=== PATIENT | male | born 1970 | race Caucasian/White ===

== ENCOUNTER 2023-03-15 09:38 | Emergency (ER) | payer SELFPAY ==
[2023-03-15] MEDS ORDERED: Dexameth. Sod Phosp. 10 MG/ML (CHEMO USE ONLY) ONE (10:53)
[2023-03-15] MEDS ORDERED: Loratadine 10 MG TAB PO SCH (11:15)
== END 2023-03-15 11:29 | disposition home or self-care (01) ==
LOC: ERS 09:38
DX: B34.9 Viral infection, unspecified (principal)
CPT/HCPCS: 87081; 87430; 99283; J1100

== ENCOUNTER 2023-03-24 12:02 | Inpatient (IN) | payer SELFPAY ==
[2023-03-24 12:53] LABS: Hemoglobin 14.4 g/dL (14.0-18.0); Mean Corpuscular HGB CONC 35.1 g/dL (32.0-36.0); Mean Corpuscular Hemoglobin 29.7 pg (27.0-31.0); Mean Corpuscular Volume 84.5 fl (78.0-98.0); Mean Platelet Volume 11.2 fL (7.4-10.4); RBC Distribution Width 13.6 % (11.5-14.5); Red Blood Cell (RBC) Count 4.85 mill/uL (4.70-6.10); White Blood Cell (WBC) Count 12.6 10x3/uL (4.8-10.8)
[2023-03-24 12:56] LABS: Delete Auto Diff?? YES; Manual Diff?? YES; Platelet Count 74 10x3/uL (130-400)
[2023-03-24 13:16] LABS: ALT (SGPT) 33 U/L (8-55); AST (SGOT) 136 U/L (5-34); Albumin 3.2 g/dL (3.5-5.0); Alkaline Phosphatase 60 U/L (40-110); Anion Gap 16 mmol/L (10-20); BUN (Urea Nitrogen) 39 mg/dL (8.4-25.7); Bilirubin, Total 0.7 mg/dL (0.2-1.2); Calc. Creatinine Clearance 0 mL/min (70-130); Calcium 8.5 mg/dL (7.8-10.44); Carbon Dioxide 23 mmol/L (22-29); Chloride 86 mmol/L (98-107); Estimated GFR 22; Glucose 92 mg/dL (70-105); Lipase 29 U/L (8-78); Potassium 3.1 mmol/L (3.5-5.1); Protein, Total 7.2 g/dL (6.0-8.3); Sodium 122 mmol/L (136-145)
[2023-03-24 13:21] LABS: Band 38 % (5-11); CellaVision Operator ID LAB.MJL; Dohle Bodies SLIGHT; Eosinophils 3 % (0-10); Large Platelets 0.9 % (0-5); Lymphocytes 2 % (21-51); Monocytes 6 % (0-10); Neutrophil 48 % (42-75); Platelet Adequacy Comment Platelets Decreased; RBC Morphology Within Normal Limits; Reactive Lymphocytes 4 % (0-10); Total Cell Count 109; Vacuoles MODERATE
[2023-03-24] MEDS ORDERED: Potassium Chloride 20 MEQ TAB ONE (15:44)
[2023-03-24] MEDS ORDERED: Sodium Chloride 0.9% 1,000 ML IV SCH (15:45)
[2023-03-24] MEDS ORDERED: Guaifenesin DM 100-10/5 ML UDCUP PO PRN (15:51)
[2023-03-24] MEDS ORDERED: Ondansetron PF 4 MG/2 ML Vial IVP PRN (15:51)
[2023-03-24 16:47] LABS: Magnesium 1.9 mg/dL (1.6-2.6)
[2023-03-24 16:58] LABS: HBCM Index 0.06 S/CO (0-0.79); HBSAg Index 0.38 S/CO (0-0.99); HIV (1/2) Antibody/Antigen Non-Reactive (NonReactive); HIV 1/2 INDEX 0.14 S/CO (<1.00); Hep A IgM AB Non-Reactive S/CO (NonReactive); Hep A IgM S/CO 0.38 S/CO (0-0.79); Hep B Surf Ag Non-Reactive S/CO (NonReactive); Hep C IgG Ab Non-Reactive S/CO (NonReactive); Hep C Index 0.06 S/CO (0-0.79); Hepatitis B Core IgM Abs Non-Reactive S/CO (NonReactive)
[2023-03-24 17:00] VITALS: BMI 34.2
[2023-03-24] MEDS: Sodium Chloride 0.9% 1,000 ML IV SCH (17:17)
[2023-03-24] MEDS ORDERED: Potassium Chloride 20 MEQ TAB PO SCH (22:00)
[2023-03-24 23:57] LABS: Campy jejuni + coli by PCR Negative (Negative); STEC Shiga Toxin 1+2 Negative (Negative); Salmonella spp. by PCR Negative (Negative); Shigella spp + EIEC by PCR Negative (Negative)
[2023-03-25 00:33] LABS: BUN (Urea Nitrogen) 41 mg/dL (8.4-25.7); Calc. Creatinine Clearance 59 mL/min (70-130); Calcium 7.6 mg/dL (7.8-10.44); Chloride 95 mmol/L (98-107); Estimated GFR 32; Glucose 79 mg/dL (70-105); Potassium 3.4 mmol/L (3.5-5.1); Sodium 124 mmol/L (136-145)
[2023-03-25 00:54] LABS: Anion Gap 10 mmol/L (10-20); Carbon Dioxide 20 mmol/L (22-29)
[2023-03-25] MEDS: Sodium Chloride 0.9% 1,000 ML IV SCH ×3 (05:30→22:05)
[2023-03-25 07:30] LABS: Hemoglobin 11.6 g/dL (14.0-18.0); Mean Corpuscular HGB CONC 34.8 g/dL (32.0-36.0); Mean Corpuscular Hemoglobin 29.7 pg (27.0-31.0); Mean Corpuscular Volume 85.4 fl (78.0-98.0); Mean Platelet Volume 12.1 fL (7.4-10.4); White Blood Cell (WBC) Count 7.7 10x3/uL (4.8-10.8)
[2023-03-25 07:37] LABS: Delete Auto Diff?? YES; Manual Diff?? YES; Platelet Count 55 10x3/uL (130-400)
[2023-03-25 07:52] LABS: Albumin 2.5 g/dL (3.5-5.0); Anion Gap 11 mmol/L (10-20); BUN (Urea Nitrogen) 38 mg/dL (8.4-25.7); BUN/Creatinine Ratio 17.67; Calc. Creatinine Clearance 64 mL/min (70-130); Calcium 7.5 mg/dL (7.8-10.44); Carbon Dioxide 18 mmol/L (22-29); Chloride 97 mmol/L (98-107); Estimated GFR 36; Glucose 77 mg/dL (70-105); Potassium 3.2 mmol/L (3.5-5.1); Sodium 123 mmol/L (136-145)
[2023-03-25 09:09] LABS: Band 36 % (5-11); Burr Cells SLIGHT = 2-5 cells HPF (0-1); CellaVision Operator ID LAB.GE; Eosinophils 4 % (0-10); Lymphocytes 1 % (21-51); Metamyelocyte 4 % (0-0); Monocytes 2 % (0-10); Neutrophil 53 % (42-75); Platelet Adequacy Comment Platelets Decreased; Polychromasia SLIGHT = 2-3 cells HPF (0-2); Total Cell Count 99
[2023-03-25 19:45] LABS: Bilirubin Negative (Negative); Blood, Urine Negative (Negative); Clarity Clear (Clear); Glucose, Urine (Dipstick) Normal (Negative); Ketone, Urine Negative (Negative); Leukocyte Negative Leu/uL (Negative); Nitrite Negative (Negative); Protein, Urine (Dipstick) 20 mg/dL (Neg-Trace); Specific Gravity, Urine 1.009 (1.002-1.036); Urobilinogen Normal mg/dL (Less than 2)
[2023-03-25] MEDS: Hydrocortisone 1% Cream 30 GM TUBE TOP SCH (20:24)
[2023-03-25] MEDS: Acetaminophen 325 MG TAB PO PRN (20:27)
[2023-03-26] MEDS ORDERED: diphenhydrAMINE 25 MG CAP PO SCH (01:35)
[2023-03-26] MEDS ORDERED: diphenhydrAMINE 25 MG CAP ONE (01:52)
[2023-03-26] MEDS: Acetaminophen 325 MG TAB PO PRN (05:46)
[2023-03-26] MEDS: Sodium Chloride 0.9% 1,000 ML IV SCH ×5 (08:26→21:24)
[2023-03-26] MEDS: Hydrocortisone 1% Cream 30 GM TUBE TOP SCH ×2 (08:27→21:24)
[2023-03-26 10:33] LABS: Anion Gap 11 mmol/L (10-20); BUN (Urea Nitrogen) 29 mg/dL (8.4-25.7); Calc. Creatinine Clearance 98 mL/min (70-130); Calcium 7.4 mg/dL (7.8-10.44); Carbon Dioxide 21 mmol/L (22-29); Chloride 100 mmol/L (98-107); Estimated GFR 60; Glucose 102 mg/dL (70-105); Potassium 3.1 mmol/L (3.5-5.1); Sodium 129 mmol/L (136-145)
[2023-03-26 11:23] LABS: EBV VCA IgM <36.0 U/mL (0.0-35.9)
[2023-03-26 13:31] LABS: Bilirubin, Direct 0.2 mg/dL (0.1-0.3)
[2023-03-26] MEDS ORDERED: Potassium Chloride 20 MEQ TAB PO SCH (14:15)
[2023-03-26 15:51] LABS: Ref Lab Test Ordered ADAMTS13 Activity; Reference Lab Name LABCORP
[2023-03-27 00:12] LABS: Campylobacter by PCR Not Detected (Not Detected)
[2023-03-27 00:13] LABS: Adenovirus F 40-41 Not Detected (Not Detected); Astrovirus Not Detected (Not Detected); C. difficile toxin A+B Not Detected (Not Detected); Cryptosporidium Not Detected (Not Detected); Cyclospora cayetanensis Not Detected (Not Detected); Entamoeba histolytica Not Detected (Not Detected); Enteroaggregative E. coli Not Detected (Not Detected); Enteropathogenic E. coli Not Detected (Not Detected); Enterotoxigenic E. coli Not Detected (Not Detected); Giardia lamblia Not Detected (Not Detected); Norovirus GI-GII Not Detected (Not Detected); Plesiomonas shigelloides Not Detected (Not Detected); Rotavirus A Not Detected (Not Detected); Salmonella Not Detected (Not Detected); Sapovirus Not Detected (Not Detected); Shiga-toxin-producing E coli Not Detected (Not Detected); Shigella/Enteroinvasive E coli Not Detected (Not Detected); Vibrio Not Detected (Not Detected); Vibrio cholerae Not Detected (Not Detected); Yersinia enterocolitica Not Detected (Not Detected)
[2023-03-27] MEDS: Sodium Chloride 0.9% 1,000 ML IV SCH ×3 (04:42→14:24)
[2023-03-27] MEDS ORDERED: Potassium Bicarbonate/Cit Ac 20 MEQ TAB PO SCH (09:15)
[2023-03-27 09:48] LABS: ALT (SGPT) 26 U/L (8-55); AST (SGOT) 70 U/L (5-34); Albumin 2.1 g/dL (3.5-5.0); Alkaline Phosphatase 34 U/L (40-110); Anion Gap 11 mmol/L (10-20); BUN (Urea Nitrogen) 18 mg/dL (8.4-25.7); Bilirubin, Total 0.4 mg/dL (0.2-1.2); Calc. Creatinine Clearance 131 mL/min (70-130); Calcium 7.1 mg/dL (7.8-10.44); Carbon Dioxide 20 mmol/L (22-29); Chloride 106 mmol/L (98-107); Estimated GFR 85; Globulin 2.8 g/dL (2.4-3.5); Glucose 87 mg/dL (70-105); Potassium 3.6 mmol/L (3.5-5.1); Protein, Total 4.9 g/dL (6.0-8.3); Sodium 133 mmol/L (136-145)
[2023-03-27] MEDS: Hydrocortisone 1% Cream 30 GM TUBE TOP SCH ×2 (10:23→21:41)
[2023-03-27] MEDS: diphenhydrAMINE 25 MG CAP PO PRN (13:20)
[2023-03-27] MEDS ORDERED: Iopamidol-370 76% 500 ML MDV (1 ML CHARGE) ONE (15:15)
[2023-03-27 15:21] LABS: CRP (Inflammatory) 8.88 mg/dL (= or < 0.5)
[2023-03-27 16:55] LABS: INR-International Normal Ratio 1.4; Prothrombin Time 17.4 sec (12.0-14.7)
[2023-03-27] MEDS ORDERED: Sodium Chloride 0.9% 1,000 ML IV SCH (17:15)
[2023-03-27] MEDS ORDERED: Sodium Bicarbonate 150 MEQ in Dextrose 5% in Water 1,000 ML IV SCH (21:00)
[2023-03-27] MEDS: Potassium Chloride 20 MEQ TAB PO SCH (21:47)
[2023-03-28] MEDS: Potassium Chloride 20 MEQ TAB PO SCH (00:25)
[2023-03-28 05:51] LABS: Hemoglobin 10.2 g/dL (14.0-18.0); Mean Corpuscular Hemoglobin 29.6 pg (27.0-31.0); Mean Platelet Volume 12.1 fL (7.4-10.4); RBC Distribution Width 14.4 % (11.5-14.5); Red Blood Cell (RBC) Count 3.45 mill/uL (4.70-6.10); White Blood Cell (WBC) Count 5.3 10x3/uL (4.8-10.8)
[2023-03-28 06:09] LABS: Manual Diff?? YES
[2023-03-28 06:10] LABS: Delete Auto Diff?? YES; Platelet Count 68 10x3/uL (130-400)
[2023-03-28 06:13] LABS: Albumin 2.1 g/dL (3.5-5.0); Anion Gap 10 mmol/L (10-20); BUN (Urea Nitrogen) 10 mg/dL (8.4-25.7); BUN/Creatinine Ratio 11.76; Calc. Creatinine Clearance 161 mL/min (70-130); Calcium 7.4 mg/dL (7.8-10.44); Carbon Dioxide 23 mmol/L (22-29); Chloride 109 mmol/L (98-107); Estimated GFR 103; Glucose 99 mg/dL (70-105); Phosphorus 2.6 mg/dL (2.3-4.7); Potassium 3.8 mmol/L (3.5-5.1); Sodium 138 mmol/L (136-145)
[2023-03-28 06:54] LABS: Band 24 % (5-11); CellaVision Operator ID LAB.GE; Eosinophils 11 % (0-10); Lymphocytes 2 % (21-51); Metamyelocyte 2 % (0-0); Monocytes 4 % (0-10); Neutrophil 53 % (42-75); Platelet Adequacy Comment Platelets Decreased; Polychromasia SLIGHT = 2-3 cells HPF (0-2); Reactive Lymphocytes 3 % (0-10); Total Cell Count 103
[2023-03-28] MEDS: Hydrocortisone 1% Cream 30 GM TUBE TOP SCH ×2 (09:29→21:02)
[2023-03-28] MEDS: diphenhydrAMINE 25 MG CAP PO PRN ×2 (09:30→21:03)
[2023-03-29 06:09] LABS: Hemoglobin 10.8 g/dL (14.0-18.0); Mean Corpuscular HGB CONC 33.2 g/dL (32.0-36.0); Mean Corpuscular Hemoglobin 29.2 pg (27.0-31.0); Mean Corpuscular Volume 87.8 fl (78.0-98.0); Mean Platelet Volume 10.5 fL (7.4-10.4); Platelet Count 104 10x3/uL (130-400); RBC Distribution Width 14.6 % (11.5-14.5); White Blood Cell (WBC) Count 5.5 10x3/uL (4.8-10.8)
[2023-03-29 06:22] LABS: Delete Auto Diff?? YES; Manual Diff?? YES
[2023-03-29 06:41] LABS: ALT (SGPT) 34 U/L (8-55); AST (SGOT) 81 U/L (5-34); Albumin 2.3 g/dL (3.5-5.0); Alkaline Phosphatase 40 U/L (40-110); Anion Gap 9 mmol/L (10-20); BUN (Urea Nitrogen) 7 mg/dL (8.4-25.7); Bilirubin, Total 0.5 mg/dL (0.2-1.2); Calc. Creatinine Clearance 174 mL/min (70-130); Calcium 7.5 mg/dL (7.8-10.44); Carbon Dioxide 29 mmol/L (22-29); Chloride 105 mmol/L (98-107); Estimated GFR 105; Globulin 3.1 g/dL (2.4-3.5); Glucose 90 mg/dL (70-105); Potassium 3.7 mmol/L (3.5-5.1); Protein, Total 5.4 g/dL (6.0-8.3); Sodium 139 mmol/L (136-145)
[2023-03-29 06:49] LABS: Band 4 % (5-11); CellaVision Operator ID lab.abc; Eosinophils 11 % (0-10); Lymphocytes 13 % (21-51); Monocytes 10 % (0-10); Neutrophil 60 % (42-75); Platelet Adequacy Comment Platelets Decreased; RBC Morphology Within Normal Limits; Reactive Lymphocytes 1 % (0-10); Smudge Cells 15.2 %; Total Cell Count 105; Toxic Granulation SLIGHT
[2023-03-29] MEDS: Dexamethasone 4 MG TAB PO SCH (08:22)
[2023-03-29] MEDS: Hydrocortisone 1% Cream 30 GM TUBE TOP SCH ×2 (08:22→21:15)
[2023-03-29] MEDS: diphenhydrAMINE 25 MG CAP PO PRN ×3 (08:22→21:15)
[2023-03-30 06:04] LABS: #Eosinphils 0.1 thou/uL (0.0-0.7); #Monocytes 0.6 thou/uL (0.11-0.59); #Neutrophils 6.2 thou/uL (1.40-6.50); %Basophils 0.4 % (0.0-1.0); %Eosinophils 0.8 % (0.0-10.0); %Lymphocytes 17.1 % (21.0-51.0); %Monocytes 6.8 % (0.0-10.0); %Neutrophils 74.2 % (42.0-75.0); Hemoglobin 11.3 g/dL (14.0-18.0); Mean Corpuscular HGB CONC 33.1 g/dL (32.0-36.0); Mean Corpuscular Hemoglobin 29.3 pg (27.0-31.0); Mean Corpuscular Volume 88.3 fl (78.0-98.0); Mean Platelet Volume 10.7 fL (7.4-10.4); Platelet Count 129 10x3/uL (130-400); RBC Distribution Width 14.3 % (11.5-14.5); Red Blood Cell (RBC) Count 3.86 mill/uL (4.70-6.10); White Blood Cell (WBC) Count 8.3 10x3/uL (4.8-10.8)
[2023-03-30 06:25] LABS: ALT (SGPT) 33 U/L (8-55); AST (SGOT) 66 U/L (5-34); Albumin 2.6 g/dL (3.5-5.0); Alkaline Phosphatase 43 U/L (40-110); Anion Gap 9 mmol/L (10-20); BUN (Urea Nitrogen) 9 mg/dL (8.4-25.7); Bilirubin, Total 0.5 mg/dL (0.2-1.2); Calc. Creatinine Clearance 193 mL/min (70-130); Calcium 7.8 mg/dL (7.8-10.44); Carbon Dioxide 29 mmol/L (22-29); Chloride 104 mmol/L (98-107); Estimated GFR 109; Globulin 3.3 g/dL (2.4-3.5); Glucose 133 mg/dL (70-105); Potassium 3.9 mmol/L (3.5-5.1); Protein, Total 5.9 g/dL (6.0-8.3); Sodium 138 mmol/L (136-145); Uric Acid 4.5 mg/dL (3.5-7.2)
[2023-03-30] MEDS: Hydrocortisone 1% Cream 30 GM TUBE TOP SCH ×2 (08:35→20:48)
[2023-03-30] MEDS: diphenhydrAMINE 25 MG CAP PO PRN ×3 (08:35→21:49)
[2023-03-30] MEDS: Dexamethasone 4 MG TAB PO SCH (08:35)
[2023-03-30 16:02] LABS: ANA Symphony (Qualitative) Negative (Negative); ANA Symphony (Quantitative) 0.3 Ratio (< 0.7 Negative); dsDNA IgG Antibody 1.9 IU/mL (<10 Negative)
[2023-03-31 06:27] LABS: #Basophils 0.1 thou/uL (0.0-0.2); #Monocytes 0.6 thou/uL (0.11-0.59); #Neutrophils 6.5 thou/uL (1.40-6.50); %Basophils 0.7 % (0.0-1.0); %Eosinophils 0.3 % (0.0-10.0); %Lymphocytes 15.9 % (21.0-51.0); %Monocytes 7.2 % (0.0-10.0); %Neutrophils 75.2 % (42.0-75.0); Hemoglobin 11.4 g/dL (14.0-18.0); Mean Corpuscular HGB CONC 32.8 g/dL (32.0-36.0); Mean Corpuscular Hemoglobin 29.5 pg (27.0-31.0); Mean Corpuscular Volume 90.2 fl (78.0-98.0); Mean Platelet Volume 10.2 fL (7.4-10.4); Platelet Count 153 10x3/uL (130-400); RBC Distribution Width 14.4 % (11.5-14.5); Red Blood Cell (RBC) Count 3.86 mill/uL (4.70-6.10); White Blood Cell (WBC) Count 8.7 10x3/uL (4.8-10.8)
[2023-03-31 06:55] LABS: ALT (SGPT) 38 U/L (8-55); AST (SGOT) 60 U/L (5-34); Albumin 2.7 g/dL (3.5-5.0); Alkaline Phosphatase 41 U/L (40-110); Anion Gap 10 mmol/L (10-20); BUN (Urea Nitrogen) 11 mg/dL (8.4-25.7); Bilirubin, Total 0.5 mg/dL (0.2-1.2); Calc. Creatinine Clearance 174 mL/min (70-130); Calcium 7.9 mg/dL (7.8-10.44); Carbon Dioxide 29 mmol/L (22-29); Chloride 101 mmol/L (98-107); Estimated GFR 105; Globulin 3.3 g/dL (2.4-3.5); Glucose 101 mg/dL (70-105); Potassium 3.9 mmol/L (3.5-5.1); Sodium 136 mmol/L (136-145); Uric Acid 4.1 mg/dL (3.5-7.2)
[2023-03-31] MEDS: Hydrocortisone 1% Cream 30 GM TUBE TOP SCH ×2 (08:44→21:13)
[2023-03-31] MEDS: diphenhydrAMINE 25 MG CAP PO PRN ×3 (08:44→21:13)
[2023-03-31] MEDS: Dexamethasone 4 MG TAB PO SCH (08:44)
[2023-04-01] MEDS: diphenhydrAMINE 25 MG CAP PO PRN (05:12)
[2023-04-01 08:27] VITALS: BP 124/72; TEMP 97.8
[2023-04-01] MEDS: Hydrocortisone 1% Cream 30 GM TUBE TOP SCH (08:32)
[2023-04-01] MEDS: Dexamethasone 4 MG TAB PO SCH (08:32)
== END 2023-04-01 11:46 | disposition home or self-care (01) | DRG 683 ==
LOC: ERS 12:02 → T4-B 15:32
PROVIDERS: ADMIT Internal Medicine; ATTEND Internal Medicine
DX: N17.9 Acute kidney failure, unspecified (principal); D76.1 Hemophagocytic lymphohistiocytosis; E87.1 Hypo-osmolality and hyponatremia; E87.20 Acidosis, unspecified; K52.9 Noninfective gastroenteritis and colitis, unspecified; N18.4 Chronic kidney disease, stage 4 (severe); I12.9 Hypertensive chronic kidney disease with stage 1 through stage 4 chronic kidney disease, or unspecified chronic kidney disease; E87.6 Hypokalemia; D63.1 Anemia in chronic kidney disease; L29.9 Pruritus, unspecified; E86.0 Dehydration; D69.6 Thrombocytopenia, unspecified; Z90.89 Acquired absence of other organs; Z83.3 Family history of diabetes mellitus; Z88.0 Allergy status to penicillin
CPT/HCPCS: 36415; 71260; 74177; 76770; 80048; 80053; 80069; 80074; 81003; 82248; 82595; 82607; 82728; 83010; 83540; 83550; 83605; 83615; 83690; 83735; 84443; 84478; 84484; 84550; 85025; 85046; 85060; 85384; 85610; 85652; 86038; 86140; 86225; 86664; 86665; 87040; 87324; 87389; 87449; 87505; 87507; 88184; 88185; 93005; 94760; 96360; 96361; J1650; J7050; J7070; J8540; Q9967